=== PATIENT | male | born 1950 | race Hispanic/Latino ===

== ENCOUNTER 2018-12-18 05:57 | Day surgery (SDC) | payer OTHER ==
[~2018-12-18] VITALS: Ht 177.8 cm; Wt 95.3 kg
[~2018-12-18 05:57] MED LIST: AMIO200T5 PO; APIX5TAB PO; ATOR40TA71 PO; BENA5TAB6 PO; DONE5TAB33 PO; FOLI1TAB15 PO; METF-446 PO; METO-408 PO; SODIUM CHLORIDE 0.9% 1000ML 1,000 ML IV ONE
[2018-12-18 06:50] VITALS: BP 116/66
[2018-12-18] MEDS ORDERED: PROPOFOL 10 MG/ML 20ML VIAL IV ONE ×2 (08:07→08:08)
[2018-12-18 08:27] VITALS: BP 78/49
[2018-12-18 08:31] VITALS: BP 116/63
[2018-12-18 08:36] VITALS: BP 115/66
[2018-12-18 08:43] VITALS: BP 126/67
== END 2018-12-18 09:40 | disposition home or self-care (01) ==
LOC: DAH 05:57 → ENDO 05:57
PROVIDERS: ATTEND Internal Medicine
DX: Z12.11 Encounter for screening for malignant neoplasm of colon (principal); K63.5 Polyp of colon; K64.0 First degree hemorrhoids; K57.30 Diverticulosis of large intestine without perforation or abscess without bleeding; I25.10 Atherosclerotic heart disease of native coronary artery without angina pectoris; E11.9 Type 2 diabetes mellitus without complications; I10 Essential (primary) hypertension; E78.5 Hyperlipidemia, unspecified; I48.91 Unspecified atrial fibrillation; Z72.89 Other problems related to lifestyle; Z95.5 Presence of coronary angioplasty implant and graft; Z79.01 Long term (current) use of anticoagulants; Z79.899 Other long term (current) drug therapy; Z79.84 Long term (current) use of oral hypoglycemic drugs
CPT/HCPCS: 45380; 82948 ×2; 88305; A4606; J2704 ×2; J7030

== ENCOUNTER → 2024-02-21 | Outpatient (CLI) | payer OTHER, MEDICARE ==
[~2024-02-21] MED LIST changes: -AMIO200T5 PO; +AMIO200T68 PO; +BENA5TAB40 PO; -BENA5TAB6 PO; -SODIUM CHLORIDE 0.9% 1000ML 1,000 ML IV ONE
[2024-02-21 16:55] LABS: ALBUMIN 4.2 g/dL (3.5-5.0); BILIRUBIN,TOTAL 1.3 mg/dL (0.2-1.0); CREATININE 0.8 mg/dL (0.5-1.3); POTASSIUM 4.5 mmol/L (3.5-5.1); TOTAL PROTEIN, SERUM 7.5 g/dL (6.0-8.3)
[2024-02-21 16:58] LABS: HEMOGLOBIN A1C 6.6 % (4.0-6.0)
== END | disposition home or self-care (01) ==
LOC: LAB 11:26
PROVIDERS: ATTEND Student in an Organized Health Care Education/Training Program
DX: I11.9 Hypertensive heart disease without heart failure (principal); E11.65 Type 2 diabetes mellitus with hyperglycemia; I25.10 Atherosclerotic heart disease of native coronary artery without angina pectoris; I48.0 Paroxysmal atrial fibrillation; E78.5 Hyperlipidemia, unspecified
CPT/HCPCS: 36415; 80053; 80061; 83036

== ENCOUNTER → 2024-03-05 | Outpatient (CLI) | payer OTHER, MEDICARE | END | disposition home or self-care (01) | LOC: RAH 09:33 | PROVIDERS: ATTEND Student in an Organized Health Care Education/Training Program | DX: I25.10 Atherosclerotic heart disease of native coronary artery without angina pectoris (principal); R07.9 Chest pain, unspecified; Z95.1 Presence of aortocoronary bypass graft | CPT/HCPCS: 75574 ==

== ENCOUNTER → 2024-09-26 | Outpatient (CLI) | payer OTHER, MEDICARE ==
--- NOTE | 2024-09-26 12:44 | HMCIMG ---
US AORTA LIMITED REASON: screening cv disorder. COMPARISON: None TECHNIQUE: Abdominal aorta ultrasound study was performed. FINDINGS: Possible portion of abdominal aorta is not well visualized. Midportion of abdominal aorta measures 15 x 14 mm, distal portion measures 14 x 13 mm. Right iliac artery measures 9 x 8 mm. Left iliac artery measures 8 x 8 mm. IMPRESSION: No evidence of abdominal aortic aneurysm is seen
== END | disposition home or self-care (01) ==
LOC: RAH 10:55
PROVIDERS: ATTEND Student in an Organized Health Care Education/Training Program
DX: Z13.6 Encounter for screening for cardiovascular disorders (principal)
CPT/HCPCS: 76775